=== PATIENT | male | born 1940 | race Caucasian/White ===

== ENCOUNTER 2020-07-22 14:32 | Emergency (ER) | payer OTHER, SELFPAY ==
--- NOTE | ~2020-07-22 | CT_ITS ---
EXAMINATION: CT ABDOMEN AND PELVIS WITH CONTRAST CLINICAL INFORMATION: Aortic aneurysm COMPARISON: Noncontrasted study done earlier. TECHNIQUE: Multidetector volumetric images were obtained from the superior aspect of the liver through the pubic symphysis following administration 85 mL of Omnipaque 350 intravenous contrast. Sagittal and coronal reformatted images were obtained on the technologist's workstation. Oral contrast: No This CT examination was performed using dose optimization techniques as appropriate, variously including the following: *Automated exposure control *Adjustment of mA and/or kV according to patient size (this includes techniques or standardized protocols for targeted exams where dose is matched to indication/reason for exam; i.e. extremities or head) *Use of iterative reconstruction technique DLP: 460 mGy-cm FINDINGS: LUNG BASES: There is some minor left base dependent atelectasis. No pleural or pericardial effusion. LIVER, GALLBLADDER, AND BILIARY TREE: There is a small cyst seen within segment 2 of the liver. There is mild intrahepatic bile duct dilatation. No suspicious focal mass identified. No radiopaque density seen within the common bile duct. Status post cholecystectomy. PANCREAS: Unremarkable. SPLEEN: Unremarkable. ADRENAL GLANDS: Unremarkable. KIDNEYS AND URETERS: The kidneys are normal in size, shape, and attenuation. There are bilateral renal cysts present. No hydronephrosis, hydroureter, or calculi seen. No perinephric stranding. BLADDER: Unremarkable. GASTROINTESTINAL TRACT: There is a moderate size hiatal hernia. No dilated loops of large or small bowel evident. There is diverticulosis of the sigmoid colon without evidence of acute diverticulitis. The appendix is visualized and appears unremarkable. ABDOMINAL WALL: No significant hernia is appreciated. LYMPH NODES: No lymphadenopathy appreciated. VASCULAR: There is a large infrarenal abdominal aortic aneurysm extending into the bifurcation but not into the iliac arteries measuring approximately 7.3 x 7.0 cm in size and spanning a vertical span of 12 cm. There is evidence for the aneurysm leaking with retroperitoneal hemorrhage extending to the left hemidiaphragm as well as down to the lower left pelvis surrounding the iliac artery the hematoma involves the psoas muscle which is enlarged. The aneurysm leak originates on the left side. PELVIC VISCERA: Prostate gland is enlarged and contains calcification. OSSEOUS STRUCTURES: Osteopenia is present. No suspicious destructive bony lesions identified. Multilevel degenerative disc disease in the lumbar spine noted. CT/CT abdomen pelvis w con IMPRESSION: Leaking infrarenal abdominal aortic aneurysm which extends to the aortic bifurcation. The aneurysm measures approximately 7.3 x 7.0 cm in size and extends for a 12 cm in length. The aneurysm is leaking to the left side. Mild intrahepatic bile duct dilatation. Renal cysts. This critical result was discussed with AWILDA Victoria at 3:35 PM on July 22, 2020 and it was ascertained that the content and urgency of the report was understood at the time of direct communication.
--- NOTE | ~2020-07-22 | CT_ITS ---
EXAMINATION: CT ABDOMEN AND PELVIS WITHOUT CONTRAST CLINICAL INFORMATION: Question stone. Hydronephrosis left side. COMPARISON: None TECHNIQUE: Multidetector volumetric imaging was performed from the superior aspect of the liver through the pubic symphysis. Sagittal and coronal reformatted images were obtained on the technologist's workstation. This CT examination was performed using dose optimization techniques as appropriate, variously including the following: *Automated exposure control *Adjustment of mA and/or kV according to patient size (this includes techniques or standardized protocols for targeted exams where dose is matched to indication/reason for exam; i.e. extremities or head) *Use of iterative reconstruction technique DLP: 475 mGy-cm FINDINGS: LUNG BASES: There is some minor left base dependent atelectasis. No pleural or pericardial effusion. LIVER, GALLBLADDER, AND BILIARY TREE: There is a small cyst seen within segment 2 of the liver. There is mild intrahepatic bile duct dilatation. No suspicious focal mass identified. No radiopaque density seen within the common bile duct. Status post cholecystectomy. PANCREAS: Unremarkable. SPLEEN: Unremarkable. ADRENAL GLANDS: Unremarkable. KIDNEYS AND URETERS: The kidneys are normal in size, shape, and attenuation. There are bilateral renal cysts present. No hydronephrosis, hydroureter, or calculi seen. No perinephric stranding. BLADDER: Unremarkable. GASTROINTESTINAL TRACT: There is a moderate size hiatal hernia. No dilated loops of large or small bowel evident. There is diverticulosis of the sigmoid colon without evidence of acute diverticulitis. The appendix is visualized and appears unremarkable. ABDOMINAL WALL: No significant hernia is appreciated. LYMPH NODES: No lymphadenopathy appreciated. VASCULAR: There is a large infrarenal abdominal aortic aneurysm extending into the bifurcation but not into the iliac arteries measuring approximately 7.3 x 7.0 cm in size and spanning a vertical span of 12 cm. There is evidence for the aneurysm leaking with retroperitoneal hemorrhage extending to the left hemidiaphragm as well as down to the lower left pelvis surrounding the iliac artery the hematoma involves the psoas muscle which is enlarged. The aneurysm leak originates on the left side. PELVIC VISCERA: Prostate gland is enlarged and contains calcification. OSSEOUS STRUCTURES: Osteopenia is present. No suspicious destructive bony lesions identified. Multilevel degenerative disc disease in the lumbar spine noted. CT/CT abdomen pelvis wo con IMPRESSION: Leaking infrarenal abdominal aortic aneurysm which extends to the aortic bifurcation. The aneurysm measures approximately 7.3 x 7.0 cm in size and extends for a 12 cm in length. The aneurysm is leaking to the left side. Mild intrahepatic bile duct dilatation. Renal cysts. This critical result was discussed with AWILDA Victoria at 3:35 PM on July 22, 2020 and it was ascertained that the content and urgency of the report was understood at the time of direct communication.
[2020-07-22 14:46] VITALS: BP 130/67; BP 148/88; PULSE 114; PULSE 115; RESP 18; TEMP 36.5; O2SAT 93; BMI 22.9
--- NOTE | 2020-07-22 15:00 | ED.ABDPAIN ---
HPI - Abdominal Pain General Chief Complaint: Back Pain/Injury Stated Complaint: left flank/back pain Time Seen by Provider: 07/22/20 14:52 Source: patient Mode of arrival: EMS Limitations: no limitations History of Present Illness HPI narrative: Patient is a 80-year-old male with a past medical history of recent diagnosis of AFib last week at [facility], COPD on 2 L home O2 during the day only, complaining of left-sided flank pain, 1 episode of nonbloody, non black and watery diarrhea this morning. He states he had some burning while urinating while at [facility] but is seems to have resolved. Patient also complaining suprapubic pain and generalized abdominal pain. He denies fever, chest pain, shortness of breath, headache, dizziness. Denies history of kidney stones. Patient states he was placed on Eliquis and Lopressor upon discharge to [facility]. He states he took the Lopressor every day x3 days but did not take it today, he also has not started taking the Eliquis as he just picked it up . Related Data Allergies Allergy/AdvReac Type Severity Reaction Status Date / Time No Known Allergies Allergy Verified 07/22/20 15:03 Review of Systems Review of Systems Yes all other systems are reviewed and are negative Physical Exam Vital Signs: Vital Signs: Last Vital Signs Temp 97.7 F 07/22/20 14:46 Pulse 108 H 07/22/20 15:50 Resp 22 H 07/22/20 15:50 BP 147/87 H 07/22/20 15:50 Pulse Ox 96 07/22/20 15:50 Body Mass Index 22.9 Const: General: cooperative, healthy appearing, comfortable and no acute distress Nutritional Appearance: average body habitus Limitations: no limitations HENMT: Head: Yes normal to inspection, Yes normocephalic and Yes atraumatic General nose exam: Normal external nose present Face and sinus: Yes normal facial exam Eyes: General: appearance normal, both eyes and all related structures Resp: Effort & Inspection: normal respiratory effort and able to speak in complete sentences Auscultation: clear to auscultation bilaterally Cardio: Rate: tachycardic Rhythm: regular rhythm Heart sounds: normal S1 and S2 GI: Inspection: Yes normal to inspection and Yes visible pulsation (unable to measure) Palpation (GI): Soft to palpation and Tenderness to palpation present (GI) suprapubicly and other (generalized) Auscultation: normal bowel sounds : General: Yes no CVA tenderness Back/Spine/Pelvis: Back: no CVA tenderness, No erythema, No warmth and back tenderness (left low back TTP) Cervical Spine: No Cervical spine tenderness Thoracic/Lumbar Spine: No thoracic spinal tenderness and No lumbar spinal tenderness Extrem: General: Yes normal to inspection and Yes no pedal edema Course Course Course Narrative: Patient is a 80-year-old male with a past medical history of recent diagnosis of AFib last week at [facility], COPD on 2 L home O2 during the day only, complaining of left-sided flank pain, 1 episode of nonbloody, non black and watery diarrhea this morning. Pt tachy at 114 but regular rhythm. O2 sat 93% on RA. PE revealed visible AAA, TTP on left low back, -CVA. Will get labs, EKG, CT abd and reassess. Reevaluation(s) Reevaluation #1: Pt getting CT scan, was notified he has a rather large AAA, measuring approx 6cm leaking inside the wall, appears to be infrarenal, pts VSS, BP 130/67, HR 114. Call to [facility] for transfer. Time: 15:19 Reevaluation #2: Dr. Grant from the Heart and vascular surgeons at [facility] returned my call, he will accept patient, ED to ED transfer. Ambulance ordered. CT Scan to be sent via [facility] to the [facility] folder as per Dr Grant request. Time: 15:33 Reevaluation #3: Dr Radha Raymond, leaking AAA, 7.3cm x12cm, x7cm, infrarenal, does not extend into the bifurcation. Will get Covid test. Called patient's to advise of situation and patient's status to transfer to [facility], no answer, left message to call back. Time: 15:36 MDM - Abdominal Pain Differential Diagnosis Differential diagnosis: Likely aortic dissection, calculus of kidney, diverticulitis and renal colic Lab Data Attestation: I reviewed the patient's lab results. Result diagrams: 07/22/20 15:47 07/22/20 15:47 Labs: Lab Results 07/22/20 07/22/20 07/22/20 Range/Units 15:46 15:46 15:47 WBC 23.5 H (4.8-10.8) X10*3/uL RBC 5.03 (4.60-5.80) X10*6/uL Hgb 14.8 (14.0-18.0) g/dl Hct 47.1 (42-52) % MCV 93.6 (80-98) fL MCH 29.4 (27.0-33.0) pg MCHC 31.4 (31.0-36.0) g/dl RDW 13.8 (11.0-16.0) % Plt Count 278 (160-400) X10*3/uL MPV 10.4 (9.4-12.4) fL Immature Gran % (Auto) 0.8 H (0.0-0.4) % Neut % (Auto) 91.0 H (45-73) % Lymph % (Auto) 3.1 L (20-40) % Calvert % (Auto) 5.0 (2-11) % Eos % (Auto) 0.0 (0-4) % Baso % (Auto) 0.1 (0-2) % Lymph # (Auto) 0.7 L (1.2-4.9) X10*3/uL Calvert # (Auto) 1.2 (0.1-1.2) X10*3/uL Eos # (Auto) 0.0 (0.0-0.4) X10*3/uL Baso # (Auto) 0.0 (0.0-0.2) X10*3/uL Abs Immat Gran (auto) 0.19 H (0.00-0.03) X10*3/uL Absolute Neuts (auto) 21.4 H (2.0-8.3) X10*3/uL Absolute Nucleated RBC 0.000 (0.0-0.012) X10*3/uL Nucleated RBC % (auto) 0.0 (0.0-0.2) /100WBC Smear Tech's Comments VERIFIED Sodium Potassium Chloride Carbon Dioxide Anion Gap BUN Creatinine Estim Creat Clear Calc Estimated GFR Random Glucose Calcium Total Bilirubin Direct Bilirubin AST ALT Alkaline Phosphatase Troponin I High Sens (<3.5-35.0) ng/L B-Natriuretic Peptide (<100) pg/mL Total Protein Albumin Lipase Cancelled COVID-19 (IRAJ) Negative (Negative) COVID-19 Clin Com See Note 07/22/20 07/22/20 07/22/20 Range/Units 15:47 15:47 15:47 WBC (4.8-10.8) X10*3/uL RBC (4.60-5.80) X10*6/uL Hgb (14.0-18.0) g/dl Hct (42-52) % MCV (80-98) fL MCH (27.0-33.0) pg MCHC (31.0-36.0) g/dl RDW (11.0-16.0) % Plt Count (160-400) X10*3/uL MPV (9.4-12.4) fL Immature Gran % (Auto) (0.0-0.4) % Neut % (Auto) (45-73) % Lymph % (Auto) (20-40) % Calvert % (Auto) (2-11) % Eos % (Auto) (0-4) % Baso % (Auto) (0-2) % Lymph # (Auto) (1.2-4.9) X10*3/uL Calvert # (Auto) (0.1-1.2) X10*3/uL Eos # (Auto) (0.0-0.4) X10*3/uL Baso # (Auto) (0.0-0.2) X10*3/uL Abs Immat Gran (auto) (0.00-0.03) X10*3/uL Absolute Neuts (auto) (2.0-8.3) X10*3/uL Absolute Nucleated RBC (0.0-0.012) X10*3/uL Nucleated RBC % (auto) (0.0-0.2) /100WBC Smear Tech's Comments Sodium Cancelled Potassium Cancelled Chloride Cancelled Carbon Dioxide Cancelled Anion Gap Cancelled BUN Cancelled Creatinine Cancelled Estim Creat Clear Calc Cancelled Estimated GFR Cancelled Random Glucose Cancelled Calcium Cancelled Total Bilirubin Cancelled Direct Bilirubin Cancelled AST Cancelled ALT Cancelled Alkaline Phosphatase Cancelled Troponin I High Sens 8.2 (<3.5-35.0) ng/L B-Natriuretic Peptide 59 (<100) pg/mL Total Protein Cancelled Albumin Cancelled Lipase COVID-19 (IRAJ) (Negative) COVID-19 Clin Com Discharge Plan Discharge Patient Disposition: Xfer Acute Care Hospital Transfer Details: transfer to [facility] emergency Interventions: Acute Care Transfer Worksheet (ED) Last Done: 07/24/20 03:30 Discharge Date/Time: 07/22/20 15:45 [facility] Social History Social History Advance Directives: No Advance Directives Information Provided: Yes
[2020-07-22 15:50] VITALS: BP 147/87; BP 165/87; PULSE 108; RESP 22; O2SAT 94; O2SAT 96
--- NOTE | 2020-07-22 15:53 | PC.NURSE ---
[address] Complaining of lower back pain. NKI. states it started last night , insideous onset. pt feels better right side lying but able to tolerate supine for bilateral bp's. skin pwd. anxious and tachipnic but following commands and alert. provider has called family and left message with plan for transfer [place] [facility]
[2020-07-22 15:59] LABS: Basophils Percent Auto 0.1 % (0-2); Hematocrit 47.1 % (42-52); Hemoglobin 14.8 g/dl (14.0-18.0); Imm Gran Abs Auto 0.19 X10*3/uL (0.00-0.03); Imm Gran Pct Auto 0.8 % (0.0-0.4); Lymphocytes Absolute Auto 0.7 X10*3/uL (1.2-4.9); Lymphocytes Percent Auto 3.1 % (20-40); MANUAL DIFF FLAG SCAN; Mean Corpuscular HGB Conc 31.4 g/dl (31.0-36.0); Mean Corpuscular Hemoglobin 29.4 pg (27.0-33.0); Mean Corpuscular Volume 93.6 fL (80-98); Mean Platelet Volume 10.4 fL (9.4-12.4); Monocytes Absolute Auto 1.2 X10*3/uL (0.1-1.2); Neutrophils Absolute Auto 21.4 X10*3/uL (2.0-8.3); Platelet Count 278 X10*3/uL (160-400); Red Blood Count 5.03 X10*6/uL (4.60-5.80); Red Cell Distribution Width 13.8 % (11.0-16.0); SCAN SMEAR FLAG 1; White Blood Count 23.5 X10*3/uL (4.8-10.8)
--- NOTE | 2020-07-22 16:00 | PC.NURSE ---
this rn on phone mult times to reach staff in [facility]. no one answering.
[2020-07-22 16:06] LABS: COVID-19 Test Negative (Negative); IDNOW Serial# 9DD0AD1C
--- NOTE | 2020-07-22 16:06 | PC.NURSE ---
rn to rn sergio manzanares at [facility].
--- NOTE | 2020-07-22 16:11 | PC.NURSE ---
late entry 1545. pt on EMS stretcher in prep for transfer to [facility].
[2020-07-22 16:23] LABS: SLIDE REVIEW VERIFIED
[2020-07-22 16:32] LABS: B Type Natriuretic Peptide 59 pg/mL (<100); Troponin-I High Sensitivity 8.2 ng/L (<3.5-35.0)
== END 2020-07-22 15:45 | disposition short-term general hospital (02) ==
PROVIDERS: Physician Assistant; Emergency Provider Emergency Medicine; PCP Physician Assistant Medical
DX: R10.9 Unspecified abdominal pain (principal); J44.9 Chronic obstructive pulmonary disease, unspecified; Z99.81 Dependence on supplemental oxygen; I48.91 Unspecified atrial fibrillation; R30.0 Dysuria; Z79.899 Other long term (current) drug therapy; Z20.822 Contact with and (suspected) exposure to COVID-19
CPT/HCPCS: 36415; 74176; 74177; 80048; 80076; 83690; 83880; 84484; 85025; 87635; 99283; 99285; Q9967